=== PATIENT | female | born 1935 | race Caucasian/White ===

== ENCOUNTER 2020-10-23 01:31 | Inpatient (IN) | payer OTHER ==
[~2020-10-23] VITALS: Ht 167.6 cm; Wt 64.5 kg
[2020-10-23] VITALS (8 sets, daily range): BP systolic 108–171; BP diastolic 63–118
[2020-10-23 01:48] LABS: BASO % 0.5 % (0.0-1.0); EOS % 0.2 % (1.0-4.0); HEMATOCRIT 40.9 % (37.0-47.0); LYMPH % 17.8 % (27.0-41.0); MEAN CELL VOLUME 84.3 fl (81.0-99.0); MEAN CORPUSCULAR HGB CONC 33.3 g/dl (33.0-37.0); MEAN PLATELET VOLUME 8.8 fl (9.6-12.3); MONO # 0.5 10*3/uL (0.1-1.0); MONO % 8.6 % (3.0-9.0); NEUT % 72.5 % (47.0-73.0); PLATELET COUNT AUTOMATED 171 10*3/uL (130-400); RED BLOOD COUNT 4.85 10*6/uL (4.10-5.10); RED CELL DISTRI WIDTH 15.1 % (0-14.5); WHITE BLOOD COUNT 5.6 10*3/uL (4.8-10.8)
[2020-10-23 02:04] LABS: ALBUMIN 2.9 gm/dl (3.1-4.5); CREATININE 1.16 mg/dL (0.55-1.02); POTASSIUM 4.1 mmol/L (3.5-5.1); TOTAL PROTEIN 6.6 gm/dL (6.4-8.2)
[2020-10-23 03:25] LABS: BILIRUBIN Negative (Negative); BLOOD 2+ (Negative); CLARITY Turbid (Clear); COLOR Yellow (Yellow); GLUCOSE Negative (Negative); KETONE Trace (Negative); LEUKO ESTERASE 3+ (Negative); NITRITE Positive (Negative); SPECIFIC GRAVITY 1.015 (1.001-1.030)
[2020-10-23 03:32] LABS: BACTERIA 4+; WBC TNTC wbc/hpf (0-5)
[2020-10-23 06:49] LABS: BASO % 0.6 % (0.0-1.0); HEMATOCRIT 40.9 % (37.0-47.0); LYMPH # 1.1 10*3/uL (1.3-4.4); LYMPH % 20.5 % (27.0-41.0); MEAN CORPUSCULAR HGB 27.2 pg (27.0-31.0); MEAN PLATELET VOLUME 9.5 fl (9.6-12.3); MONO # 0.5 10*3/uL (0.1-1.0); MONO % 9.4 % (3.0-9.0); NEUT # 3.5 10*3/uL (2.3-7.9); NEUT % 69.3 % (47.0-73.0); PLATELET COUNT AUTOMATED 168 10*3/uL (130-400); RED BLOOD COUNT 4.81 10*6/uL (4.10-5.10); WHITE BLOOD COUNT 5.1 10*3/uL (4.8-10.8)
[2020-10-23 07:06] LABS: ALBUMIN 2.6 gm/dl (3.1-4.5); CREATININE 1.17 mg/dL (0.55-1.02); POTASSIUM 3.9 mmol/L (3.5-5.1); TOTAL PROTEIN 6.1 gm/dL (6.4-8.2)
[2020-10-23 07:14] LABS: THYROID STIM HORMONE (HS) 2.62 uIU/ml (0.358-4.75)
[2020-10-24 08:00] VITALS: BP 121/69
[2020-10-24 12:00] VITALS: BP 117/50
[2020-10-24] MEDS ORDERED: VISINE DRY EYE15 ML OU (12:32)
[2020-10-24] MEDS ORDERED: CLEOCIN HCL300 MG PO (12:35)
[2020-10-24] MEDS ORDERED: PROBIOTIC1 EAC1 PO (12:41)
[2020-10-24 16:00] VITALS: BP 116/74
[2020-10-24 20:00] VITALS: BP 113/86
[2020-10-25] VITALS: BP 113/80
[2020-10-25 07:03] LABS: HEMATOCRIT 38.1 % (37.0-47.0); MEAN CELL VOLUME 86.2 fl (81.0-99.0); MEAN CORPUSCULAR HGB 27.6 pg (27.0-31.0); MEAN PLATELET VOLUME 9.2 fl (9.6-12.3); PLATELET COUNT AUTOMATED 189 10*3/uL (130-400); RED BLOOD COUNT 4.42 10*6/uL (4.10-5.10); RED CELL DISTRI WIDTH 14.6 % (0-14.5); WHITE BLOOD COUNT 5.4 10*3/uL (4.8-10.8)
[2020-10-25 07:18] LABS: BUN 29 mg/dl (7-24); CHLORIDE 108 mmol/L (98-107); CREATININE 1.02 mg/dL (0.55-1.02); POTASSIUM 3.9 mmol/L (3.5-5.1); SODIUM 139 mmol/L (136-145)
[2020-10-25 08:00] VITALS: BP 115/57
[2020-10-25 08:00] LABS: ATYPICAL LYMPHS 2 % (0-0); PLATELET SUFFICIENCY NORMAL (NORMAL); TOTAL CELLS COUNTED 100 #CELLS
[2020-10-25 12:00] VITALS: BP 117/62
[2020-10-25] MEDS ORDERED: METOPROLOL SUCC50 M1 PO (12:16)
[2020-10-25] MEDS ORDERED: ASPIRIN81 M1 PO (12:16)
[2020-10-25] MEDS ORDERED: CIPRO500 MG PO (12:16)
== END 2020-10-25 15:16 | DRG 308 ==
LOC: ED 01:31 → EDHOLD 04:57 → 4E 04:57 → EDHOLD 05:52 → 4E 22:37
PROVIDERS: Family Medicine; Hospitalist; Internal Medicine; ADMIT Student in an Organized Health Care Education/Training Program; ATTEND Student in an Organized Health Care Education/Training Program
DX: I48.91 Unspecified atrial fibrillation (principal); J96.00 Acute respiratory failure, unspecified whether with hypoxia or hypercapnia; E43 Unspecified severe protein-calorie malnutrition; E87.1 Hypo-osmolality and hyponatremia; N30.00 Acute cystitis without hematuria; F03.90 Unspecified dementia, unspecified severity, without behavioral disturbance, psychotic disturbance, mood disturbance, and anxiety; Z51.5 Encounter for palliative care; Z66 Do not resuscitate; R13.11 Dysphagia, oral phase; R29.6 Repeated falls; B96.20 Unspecified Escherichia coli [E. coli] as the cause of diseases classified elsewhere; I12.9 Hypertensive chronic kidney disease with stage 1 through stage 4 chronic kidney disease, or unspecified chronic kidney disease; Z20.822 Contact with and (suspected) exposure to COVID-19; N18.31 Chronic kidney disease, stage 3a; F41.9 Anxiety disorder, unspecified; M19.90 Unspecified osteoarthritis, unspecified site; E78.2 Mixed hyperlipidemia; R73.9 Hyperglycemia, unspecified; Z68.23 Body mass index [BMI] 23.0-23.9, adult